=== PATIENT | female | born 2005 | race Caucasian/White ===

== ENCOUNTER 2025-06-01 06:24 | Outpatient (REF) | payer OTHER, SELFPAY ==
--- OUTSIDE RECORDS SUMMARY | 2025-05-26 23:35 | XMS_ITS | Encounter Summary ---
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 Name Role Phone Pcp, Unknown Primary Care Provider Unavailabl e Reason for Visit * Reason Comments Abdominal Pain Encounter Details Date Type Department Care Team ([facility] st Contact Info) Description 05/26/2025 11:35 PM EDT - 05/27/2025 5:40 AM EDT Emergency [facility] [address] [place] [address] Jen Ding MD [address] [place] [address] [email or web address] Discharge Disposition: Home or Self Care Social History Tobacco Use Types Packs/Day Years Used Date Smoking Tobacco: Never Assessed Education Answer Date Recorded Are you interested in more education? Not on dariel e 05/26/2025 Are you concerned about learning? Not on file 05/26/2025 No 05/26/2025 No 05/26/2025 Food Answer Date Recorded Within the past 6 months we worried whether our food would run out before we got money to buy more. Never True 05/27/2025 Within the past 6 months the food we bought just didn't last and we didn't have enough money to get more. Never True Residential Stability Answer Date Recor ded What is your housing situation today? I have jennie toño 05/27/2025 How many times have you moved in the past 12 thu ths? One time 05/27/2025 Paying for Meds Answer Date Recorded Do you have trouble paying for medicines? No 05/27/2025 Paying Utility Bills Answer Date Record ed Do you have trouble paying your heating or elect ricity bill? No 05/27/2025 Transportation Answer Date Recorded Has the lack of transportati on kept you from medical appointments or from getting medications? No 05/27/2025 Digital Access Answer Date Recorded No 05/27/2025 Yes 05/27/2025 Do you have reliable internet access at home? Ye s 05/27/2025 Do you have a device (e.g., phone, tablet, computer) with a working camera? Yes 05/27/2025 Intimate Partner Violence Answer Date R ecorded Are you denied basic needs s uch as food, clothing, or medical care? No 05/26/2025 In the past 12 months have y ou been in a relationship with a person who hurts, threatens, or tries to control you? No 05/26/2025 Are you denied basic needs s uch as food, clothing, or medical care? No 05/26/2025 In the past 12 months have y ou been in a relationship with a person who hurts, threatens, or tries to control you? No 05/26/2025 Comments No Sex and Gender Information Value Date Recorded Sex Assigned at Not on file Legal Sex Female 3:45 PM EDT Gender Identity Not on file Sexual Orientation Not on file documented as of this encounter Last Filed Vital Signs Vital Sign Reading Time Taken Comments Blood Pressure 126/63 05/27/2025 5:13 AM EDT Pulse 63 05/27/2025 5:13 AM EDT Temperature 36.9 C (98.4 F) 05/27/2025 5:13 AM EDT Respiratory Rate 16 05/27/2025 5:13 AM EDT Oxygen Saturation 99% 05/27/2025 5:13 AM EDT Inhaled Oxygen Concentration - - Weight 68 kg (150 lb) 05/26/2025 5:07 PM EDT Height 170.2 cm (5' 7 ) 05/26/2025 5:07 PM EDT Body Mass Index 23.49 05/26/2025 5:07 PM EDT documented in this encounter Functional Status * Calculated C-SSRS Risk Score (Lifetime/Recent) Answer Date of Assessment Author No Risk Indicated 05/26/2025 5:08 PM EDT Shay Dacosta RN * [place]in Suicide Severity Rating Scale (Screener/Recent Self-Report) Question Answer Date of Assessment Author 1. Krystal to be (Past 1 Month) No 05/26/2025 5:08 PM EDT Shay Dacosta RN 2. Non-Specific Active Suici sascha Thoughts (Past 1 Month) No 05/26/2025 5:08 PM EDT Braulio Dacosta RN 6. Suicidal Behavior (Lifetime) No 5:08 PM EDT Shay Dacosta RN documented as of this encounter Discharge Instructions * Discharge Instructions* Jen Ding MD - 05/27/2025 4:48 AM EDT You were seen in the emergency department for abdominal and pelvic pain. Your blood work is reassuring, the ultrasound and CAT scan did not show any concerning findings that would explain your symptoms. You were given a dose of Bentyl which is a medication that helps with GI type pain. I have sent a prescription to your pharmacy as well. You can take this up to 4 times a day as needed. Please follow-up with [facility] to have your symptoms rechecked and do not hesitate to return to the emergency department at any time for any new or worsening symptoms * Attachments The following attachments cannot be sent through Care Everywhere. * Abdominal Pain ([place]) documented in this encounter Medications at Time of Discharge dicyclomine (BENTYL) 10 MG capsule Take 1 capsule (10 mg total) by mouth 4 (four) times a day before meals and nightly. 20 capsule 05/27/2025 documented as of this encounter ED Notes * Yamilka Perdomo RN - 05/27/2025 5:17 AM EDT Pt has been cleared for discharge. She has verbalized understanding of discharge instructions and denied any further questions. VSS. NAD noted. She leaves department ambulatory and is noted to have astrong, steady gait. 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 * Shay Dacosta RN - 05/26/2025 5:00 PM EDT Pt arrived in ED with c/o abdominal pain for past several weeks. Pt reports abd pain has been coming and going in waves pain is described as localized stabbing and consistent 9/10 in LQ and pelvic area. Pt reports pain started this am with no relief in pain for past several hours. Pt denies CP,OSBALDO. Pt reports nausea denies vomiting. BM normal and no problems with urination. Pt is a/ox4 able to speak in full sentences resp even and unlabored, pt in visible pain.Upon palpation pain noted throughout lower quadrants. * Riana Hyatt PA-C - 05/26/2025 3:45 PM EDT Chief Complaint Chief Complaint Patient presents with Abdominal Pain History of Present Illness The patient, Camelia Hodge,is a 19 y.o. female who presents for evaluation of Abdominal Pain History of Present Illness This is a 19-year-old female presenting with abdominal pain. The patient has been experiencing unusual and painful lower abdominal pain for the past 3 weeks, which she initially thought was related to food. The pain started suddenly and was intermittent. She consulted a [facility] who diagnosed her with gastritis and prescribed medication, but the pain did not subside. The pain intensified, leading to an incident during a practice session where she was unable to sit upright. She then [facility], where blood tests were conducted but no abnormalities were found. An ultrasound was scheduled for the following week toinvestigate a potential ovarian cyst. Today, the pain began during her practice session and gradually increased in intensity, reaching a peak of 9 on a scale of 1 to 10. The pain was so severe that it caused difficulty in breathing, but it eventually subsided. Currently, she rates her pain at 2 or 3 and describes it as a squeezing sensation. She reports no nausea, vomiting, or fever. Her bowel movements are regular and without blood. She has noticed occasional haziness in her urine but reports no pain during urination or vaginal discharge. She is currently menstruating and is not sexually active. She has no history of abdominal surgeries and is generally healthy. She has noticed an increasein flatulence over the past week, which she finds unusual as it typically occurs a few days before her period. Unless otherwise specified, I have reviewed and agree with the triage and nursing notes. ROS A ten point review of systems was negative except what was noted in the HPI. Review of Systems Past Medical History No past medical history on file. Past Surgical History No past surgical history on file. Home Medications Prior to Admission medications Not on File Allergies No Known Allergies Social and Family History Social History Tobacco Use Smoking status: Not on file Smokeless tobacco: Not on file Substance Use Topics Alcohol use: Not on file Social History Substance and Sexual Activity Drug Use Not on file No family history on file. Physical Exam Vital Signs: ED Triage Vitals [05/26/25 1707] Encounter Vitals Group BP (!) 142/80 Systolic BP Percentile Diastolic BP Percentile Heart Rate (!) 47 Respiratory Rate 18 Temperature 36.8 ??C (98.2 ??F) Temp Source Tympanic SpO2 100 % Weight 150 lb Height 5' 7 Head Circumference Peak Flow Pain Score Pain Loc Pain Education Exclude from Growth Chart Physical Exam GENERAL APPEARANCE: AxOx3, appears generally well, not ill or toxic appearing, no acute distress. HEENT: Head is normocephalic and atraumatic, mucous membranes are moist without lesions NECK: Supple without lymphadenopathy. No stiffness or restricted ROM. CARDIOVASCULAR: Normal rate and regular rhythm, normal S1/S2, no murmurs, rubs or gallops PULMONARY: Lung sounds are clear to auscultation bilaterally, moving air well. No crackles or wheezes are heard. ABDOMEN: Soft, nondistended with good bowel sounds heard. Tenderness to palpation over abdominal lower abdomen. No rebound or guarding. No peritoneal signs. No CVA tenderness MUSCULOSKELETAL: normal ROM of all major extremities; no obvious deformities or signs of injury. NEUROLOGICAL: No focal deficits; CN 2-12 not formally tested but appear grossly intact. Observed toambulate with normal gait. SKIN: Warm and dry without any rash. Laboratory Testing Results for orders placed or performed during the hospital encounter of 05/26/25 Urine sediment Result Value Ref Range WBC 11-20 (*) NONE SEEN /hpf RBC TOO NUMEROUS TO COUNT (*) NONE SEEN /hpf URINE EPITHELIAL 5-10 (*) NONE SEEN MUCUS NONE SEEN NONE SEEN /hpf BACTERIA NONE SEEN NONE SEEN /hpf HCG, serum qualitative Specimen: Blood Result Value Ref Range HCG, QUALITATIVE Negative Negative IU/L Urinalysis w/reflex Urine Culture Specimen: Urine Result Value Ref Range COLOR Red (*) Yellow CLARITY TURBID GLUCOSE Negative Negative BILI 1+ (*) Negative KETONES Trace (*) Negative SPECIFIC GRAVITY 1.020 1.005 - 1.030 BLOOD 3+ (*) Negative PH 7.5 5.0 - 8.0 Protein-UA 1+ (*) Negative NITRITE Negative Negative Leukocyte esterase, ur Trace (*) Negative Lipase Specimen: Blood Result Value Ref Range LIPASE 43 16 - 63 U/L LFTs (hepatic panel) Specimen: Blood Result Value Ref Range ALKALINE PHOSPHATASE 68 39 - 117 U/L TOTAL BILIRUBIN <0.2 0.0 - 1.2 mg/dL DIRECT BILIRUBIN 0.1 0.0 - 0.2 mg/dL Bilirubin (Indirect) NOT CALCULATED 0 - 1.5 mg/dL AST 16 0 - 37 U/L ALT 9 0 - 40 U/L TOTAL PROTEIN 7.2 6.5 - 8.0 g/dL ALBUMIN 4.4 3.9 - 4.8 g/dL GLOBULIN 2.8 1 - 4.8 g/dL A/G Ratio 1.57 1.00 - 4.80 RATIO Basic metabolic panel Specimen: Blood Result Value Ref Range SODIUM 140 133 - 146 mmol/L CHLORIDE 106 96 - 108 mmol/L POTASSIUM 3.9 3.3 - 5.1 mmol/L CO2 23 21 - 35 mmol/L BUN 24 (H) 6 - 19 mg/dL CREATININE 0.70 0.5 - 1.5 mg/dL GLUCOSE 94 70 - 99 mg/dL CALCIUM 9.2 8.4 - 10.3 mg/dL EGFR >120 >59 mL/min/1.73m2 ANION GAP 15 10 - 20 mmol/L CBC and differential Specimen: Blood Result Value Ref Range WBC 7.03 4.00 - 11.00 K/uL RBC 3.83 (L) 4.00 - 5.20 M/uL HGB 11.7 (L) 12.0 - 16.0 g/dL HCT 34.8 (L) 36.0 - 46.0 % PLT 210 150 - 450 K/uL MCV 90.9 80.0 - 100.0 fL MCH 30.5 27.0 - 31.0 pg MCHC 33.6 32.0 - 36.0 g/dL RDW 12.5 11.5 - 14.5 % MPV 11.2 8.4 - 12.0 fL NRBC 0.00 0.00 /100 WBCs ABSOLUTE NRBC 0.00 0.00 K/uL DIFF METHOD Auto NEUTS 56.8 48.0 - 76.0 % LYMPHS 32.3 18.0 - 41.0 % MONOS 8.1 4.0 - 11.0 % EOS 2.0 0.0 - 5.0 % BASOS 0.4 0.0 - 1.5 % Granulocytes, immature (%) 0.4 0.0 - 0.9 % ABSOLUTE NEUTS 3.99 1.92 - 7.60 K/uL ABSOLUTE LYMPHS 2.27 0.72 - 4.10 K/uL ABSOLUTE MONOS 0.57 0.16 - 1.10 K/uL ABSOLUTE EOS 0.14 0.00 - 0.50 K/uL ABSOLUTE BASOS 0.03 0.00 - 0.15 K/uL Granulocytes, immature 0.03 0.00 - 0.09 K/uL Radiology Testing US Pelvis Final Result No acute abnormality. Abdomen/Pelvis (Results Pending) ED Medication from 05/26/2025 1545 to 05/27/2025 0354 Date/Time Order Dose Route Action Action by Comments 05/26/2025 1715 EDT acetaminophen (TYLENOL) tablet 975 mg 975 mg Oral Given Shay Dacosta RN-- 05/26/2025 1715 EDT ibuprofen (ADVIL,MOTRIN) tablet 600 mg 600 mg Oral Not Given Shay Dacosta RN -- 05/27/2025 0340 EDT diphenhydrAMINE (BENADRYL) capsule 50 mg 50 mg Oral Given Yamilka Perdomo RN -- [facility] 19-year-old female who presents to the emergency department with complaint of abdominal pain and nausea. HPI and physical exam as above. Upon presentation patient is hemodynamically stable, alert and oriented X3, afebrile, vital signs are all within normal limits, not ill or toxic appearing, no acute distress. Laboratory results are notable for mild anemia but otherwise unremarkable. Urinalysis likely contaminated due to patient currently menstruating. Patient denies any urinary symptoms. Pelvic ultrasound showed no acute abnormalities. Discussed results of evaluation with the patient and discussed further evaluation with CT imaging. Risks and benefits were discussed. Patient would like to proceed with CT imaging at this time. At the end of my shift patient was signed out to Dr. Ding disposition pending CT results. Clinical Impressions as of 05/27/25 0354 Abdominal pain, unspecified abdominal location Pelvic pain Clinical Impression Diagnosis Description Comment Final diagnoses Abdominal pain, unspecified abdominal location Abdominal pain, unspecified abdominal location -- Pelvic pain Pelvic pain -- Disposition: signed out Riana Hyatt PA-C 05/27/25353 Riana Hyatt PA-C 05/27/25354 * Jen Ding MD - 05/26/2025 3:45 PM EDT ED Course Clinical Impressions as of 05/27/25 0449 Abdominal pain, unspecified abdominal location Pelvic pain Assessment and Plan: Patient signed out pending CT scan which has resulted without any acute intra- abdominal pathology. Will trial Bentyl, advise close follow-up at [facility] and strict return precautions. Patient understands and agrees with plan. Stable for discharge. Attestation: I saw the patient as part of a shared visit with the advanced practice practitioner. I personally made or approved the management plan and take responsibility for the patient management. Jen Ding MD 05/27/25 045 documented in this encounter Plan of Treatment Not on file documented as of this encounter Procedures Procedure Name Priority Date/Time Associated Diagnosis Comments CT ABDOMEN/PELVIS WITH CONTRAST Routine 05/27/2025 4:02 AM EDT US PELVIS TRANSABDOMINAL PLUS TRANSVAGINAL Routine 05/27/2025 1:25 AM EDT HCG, SERUM QUALITATIVE STAT 5:37 PM EDT LFTS (HEPATIC PANEL) STAT 05/26/2025 5:37 PM EDT CBC AND DIFFERENTIAL STAT 05/26/2025 5:37 PM EDT LIPASE STAT 05/26/2025 5:37 PM EDT BASIC METABOLIC PANEL STAT 05/26/2025 5:37 PM EDT URINALYSIS W/REFLEX URINE CULTURE STAT 05/26/2025 5:12 PM EDT URINE CULTURE Routine 05/26/2025 5:12 PM EDT URINE SEDIMENT STAT 05/26/2025 5:12 PM EDT documented in this encounter Results * CT ABDOMEN/PELVIS WITH CONTRAST (05/27/2025 4:02 AM EDT) Anatomical Region Laterality Modality Abdomen, Pelvis Computed Tomogra phy 05/27/2025 4:38 AM EDT Impressions 05/27/2025 4:42 AM EDT No acute abnormality in the abdomen or pelvis. Narrative 05/27/2025 4:[address] ABDOMEN/PELVIS WITH CONTRAST Referring clinician's provided indication for this examination in Epic: * Abdominal pain, acute, nonlocalized TECHNIQUE: Multidetector-row CT of the abdomen and pelvis was performed after administration of intravenous contrast using tailored dose modulation techniques. Images were reconstructed in the axial, coronal, and sagittal planes. COMPARISON: None FINDINGS: Lower Chest: No consolidation or pleural effusions. Liver: No focal lesions. Biliary: Noninflamed gallbladder. No biliary ductal dilatation. Spleen: No splenomegaly or focal lesions. Pancreas: No masses or ductal dilatation. Adrenal Glands: No nodules. Kidneys/Ureters: No stones or hydronephrosis. Bowel: No bowel wall thickening or dilatation. Appendix not visualized, no secondary signs of appendicitis. Peritoneum/Retroperitoneum: Small volume free fluid in the pelvis, likely physiologic. No pneumoperitoneum. Lymph Nodes: No lymphadenopathy. Pelvic Organs/Bladder: No significant abnormality. Vessels: No abdominal aortic aneurysm. Bones/Soft Tissues: No significant abnormality. Procedure Note Lita Roche MD - 05/27/2025 CT ABDOMEN/PELVIS WITH CONTRAST Referring clinician's provided indication for this examination in [facility]: *Abdominal pain, acute, nonlocalized TECHNIQUE: Multidetector-row CT of the abdomen and pelvis was performedafter administration of intravenous contrast using tailored dosemodulation techniques. Images were reconstructed in the axial, coronal,and sagittal planes. COMPARISON: None FINDINGS: Lower Chest: No consolidation or pleural effusions. Liver: No focal lesions. Biliary: Noninflamed gallbladder. No biliary ductal dilatation. Spleen: No splenomegaly or focal lesions. Pancreas: No masses or ductal dilatation. Adrenal Glands: No nodules. Kidneys/Ureters: No stones or hydronephrosis. Bowel: No bowel wall thickening or dilatation. Appendix not visualized, nosecondary signs of appendicitis. Peritoneum/Retroperitoneum: Small volume free fluid in the pelvis, likelyphysiologic. No pneumoperitoneum. Lymph Nodes: No lymphadenopathy. Pelvic Organs/Bladder: No significant abnormality. Vessels: No abdominal aortic aneurysm. Bones/Soft Tissues: No significant abnormality. IMPRESSION: No acute abnormality in the abdomen or pelvis. us Riana Hyatt PA-C IMG CT ABD/PELVIS Final Res ult * US PELVIS TRANSABDOMINAL PLUS TRANSVAGINAL (05/27/2025 1:25 AM EDT) Anatomical Region Laterality Modality Pelvis, Uterus/Adnexa Ultrasound 05/27/2025 2:15 AM EDT Impressions 05/27/2025 2:17 AM EDT No acute abnormality. Narrative 05/27/2025 2:17 AM EDT US PELVIS TRANSABDOMINAL AND TRANSVAGINAL Referring clinician's provided indication for this examination in [facility]: Pain TECHNIQUE: Pelvic Ultrasound Transabdominal performed for global imaging of the pelvis. Pelvic Ultrasound Transvaginal performed for detailed imaging of the endometrium and/or adnexa. COMPARISON: None FINDINGS: Uterus: Size: 8.6 x 4.4 x 3.5 cm. Orientation: anteverted Myometrium: Normal. Endometrium: Normal. Thickness: 3 mm. Right adnexa: Ovary: Normal. Left adnexa: Ovary: Normal. Free fluid: No significant free fluid. Procedure Note Lita Roche MD - 05/27/2025 US PELVIS TRANSABDOMINAL AND TRANSVAGINAL Referring clinician's provided indication for this examination in Epic:Pain TECHNIQUE: Pelvic Ultrasound Transabdominal performed for global imagingof the pelvis. Pelvic Ultrasound Transvaginal performed for detailedimaging of the endometrium and/or adnexa. COMPARISON: None FINDINGS: Uterus: Size: 8.6 x 4.4 x 3.5 cm. Orientation: anteverted Myometrium: Normal. Endometrium: Normal. Thickness: 3 mm. Right adnexa: Ovary: Normal. Left adnexa: Ovary: Normal. Free fluid: No significant free fluid. IMPRESSION: No acute abnormality. Riana Hyatt PA-C IMG US PELVIS Final Resul t * HCG, serum qualitative (05/26/2025 5:37 PM EDT) HCG, QUALITATIVE Negative Negative IU/L [facility] Blood 05/26/2025 5:37 PM EDT 05/26/2025 5:44 PM EDT us Marcelle Adams PA-C LAB BLOOD ORDERABLES Final Result [facility] [address] [place] [address] * Lipase (05/26/2025 5:37 PM EDT) LIPASE 43 16 - 63 U/L [facility] Blood 05/26/2025 5:37 PM EDT 05/26/2025 5:44 PM EDT us Marcelle Adams PA-C LAB BLOOD ORDERABLES Final Result Performing Organization Address City/[facility]/ZIP Co de Phone Number [address] [address] * LFTs (hepatic panel) (05/26/2025 5:37 PM EDT) ALKALINE PHOSPHATASE 68 39 - 117 U/L [facility] TOTAL BILIRUBIN <0.2 0.0 - 1.2 mg/dL [facility] DIRECT BILIRUBIN 0.1 0.0 - 0.2 mg/dL [facility] Bilirubin (Indirect) NOT CALCULATED 0 - 1.5 mg/dL [facility] AST 16 0 - 37 U/L [facility] ALT 9 0 - 40 U/L [facility] TOTAL PROTEIN 7.2 6.5 - 8.0 g/dL [facility] ALBUMIN 4.4 3.9 - 4.8 g/dL [facility] GLOBULIN 2.8 1 - 4.8 g/dL [facility] A/G Ratio 1.57 1.00 - 4.80 RATIO [facility] Blood 05/26/2025 5:37 PM EDT 05/26/2025 5:44 PM EDT us Marcelle Adams PA-C LAB BLOOD ORDERABLES Final Result Performing Organization Address City/[facility]/ZIP Co de Phone Number [address] [address] * (ABNORMAL) Basic metabolic panel (05/26/2025 5:37 PM EDT) SODIUM 140 133 - 146 mmol/L [facility] CHLORIDE 106 96 - 108 mmol/L [facility] POTASSIUM 3.9 3.3 - 5.1 mmol/L [facility] CO2 23 21 - 35 mmol/L [facility] BUN 24(H) 6 - 19 mg/dL [facility] CREATININE 0.70 0.5 - 1.5 mg/dL [facility] GLUCOSE 94 70 - 99 mg/dL [facility] CALCIUM 9.2 8.4 - 10.3 mg/dL [facility] EGFR >120 >59 mL/min/1.7 3m2 [facility] Comment:Estimated glomerular filtration rate calculated using the CKD-EPI refit equation. ANION GAP 15 10 - 20 mmol/L [facility] Blood 05/26/2025 5:37 PM EDT 05/26/2025 5:44 PM EDT us Marcelle Adams PA-C LAB BLOOD ORDERABLES Final Result [facility] [address] [place] [address] * (ABNORMAL) CBC and differential (05/26/2025 5:37 PM EDT) WBC 7.03 4.00 - 11.00 K/uL [facility] RBC 3.83(L) 4.00 - 5.20 M/uL [facility] HGB 11.7(L) 12.0 - 16.0 g/dL [facility] HCT 34.8(L) 36.0 - 46.0 % [facility] PLT 210 150 - 450 K/uL [facility] MCV 90.9 80.0 - 100.0 fL [facility] MCH 30.5 27.0 - 31.0 pg [facility] MCHC 33.6 32.0 - 36.0 g/dL [facility] RDW 12.5 11.5 - 14.5 % [facility] MPV 11.2 8.4 - 12.0 fL [facility] NRBC 0.00 0.00 /100 WBCs [facility] ABSOLUTE NRBC 0.00 0.00 K/uL [facility] DIFF METHOD Auto [facility] NEUTS 56.8 48.0 - 76.0 % [facility] LYMPHS 32.3 18.0 - 41.0 % [facility] MONOS 8.1 4.0 - 11.0 % [facility] EOS 2.0 0.0 - 5.0 % [facility] BASOS 0.4 0.0 - 1.5 % [facility] Granulocytes, immature (%) 0.4 0.0 - 0.9 % [facility] ABSOLUTE NEUTS 3.99 1.92 - 7.60 K/uL [facility] ABSOLUTE LYMPHS 2.27 0.72 - 4.10 K/uL [facility] ABSOLUTE MONOS 0.57 0.16 - 1.10 K/uL [facility] ABSOLUTE EOS 0.14 0.00 - 0.50 K/uL [facility] ABSOLUTE BASOS 0.03 0.00 - 0.15 K/uL [facility] Granulocytes, immature 0.03 0.00 - 0.09 K/uL [facility] Blood 05/26/2025 5:37 PM EDT 05/26/2025 5:44 PM EDT us Marcelle Adams PA-C LAB BLOOD ORDERABLES Final Result Performing Organization Address City/[facility]/ZIP Co de Phone Number [address] [address] * (ABNORMAL) Urine Culture (05/26/2025 5:12 PM EDT) Special Requests None Reflexed from [id number] 05/26/2025 7:26 PM EDT [facility] Urine Culture >100,000 colony forming units per mL MIXED [place]AG[place] (3 OR MORE COLONY TYPES) Culture indicates contamination . Please resubmit if necessary.(A) 05/28/2025 12:43 PM EDT [facility] Urine 05/26/2025 5:12 PM EDT 05/26/2025 6:30 PM EDT us Marcelle Adams PA-C MICROBIOLOGY - GENERA L ORDERABLES Final Result [address] [address] * (ABNORMAL) Urine sediment (05/26/2025 5:12 PM EDT) WBC 11-20(A) NONE SEEN /hpf [facility] RBC TOO NUMEROUS TO COUNT(A) NONE SEEN /hpf [facility] URINE EPITHELIAL 5-10(A) NONE SEEN [facility] MUCUS NONE SEEN NONE SEEN /hpf [facility] BACTERIA NONE SEEN NONE SEEN /hpf [facility] 05/26/2025 5:12 PM EDT 05/26/2025 6:30 PM EDT Marcelle Adams PA-C URINE ORDERABLES Kizzy l Result Performing Organization Address [facility]/ZIP Co de Phone Number [address] [address] [address] * (ABNORMAL) Urinalysis w/reflex Urine Culture (05/26/2025 5:12 PM EDT) COLOR Red(A) Yellow [facility] CLARITY TURBID [facility] GLUCOSE Negative Negative [facility] BILI 1+(A) Negative [facility] KETONES Trace(A) Negative [facility] SPECIFIC GRAVITY 1.020 1.005 - 1.030 [facility] BLOOD 3+(A) Negative [facility] PH 7.5 5.0 - 8.0 [facility] Protein-UA 1+(A) Negative [facility] NITRITE Negative Negative [facility] Leukocyte esterase, ur Trace(A) Negative [facility] Urine (Urine) 05/26/2025 5:1 2 PM EDT 05/26/2025 6:30 PM EDT Marcelle Adams PA-C URINE ORDERABLES Kizzy l Result Performing Organization Address [facility] Co de Phone Number [address] [address] documented in this encounter Visit Diagnoses Diagnosis Abdominal pain, unspecified abdominal location- Primary Pelvic pain documented in this encounter Administered Medications Inactive Administered Medications - up to 3 most recent administrations Medication Order MAR Action Action Date Dose Rate Site acetaminophen (TYLENOL) tablet 975 mg 975 mg, Oral, Once, On Thu05/26/25 at 1715, For 1 dose Given 05/26/2025 5:15 PM EDT 975 mg dicyclomine (BENTYL) capsule 10 mg 10 mg, Oral, Once, On 05/27/25 at 0500, For 1 dose Given 05/27/2025 5:06 AM EDT 10 mg diphenhydrAMINE (BENADRYL) capsule 50 mg 50 mg, Oral, Once, On 05/27/25 at 0300, For 1 dose Given 05/27/2025 3:40 AM EDT 50 mg iohexoL (OMNIPAQUE-350) 350 mg iodine/mL solution 100 mL 100 mL, Intravenous, Once as needed, pre procedure/treatment, Starting on 05/27/25 at 0346, For 1 dose, Procedural Contrast/Med Active Now, Each mL contains 755 mg of iohexol equivalent to 350 mg of organic iodine. Given 05/27/2025 3:56 AM EDT 100 mL documented in this encounter Active and Recently Administered Medications Times are shown in EDT. Scheduled Medication Order 05/25/2025 05/26/2025 05/27/2025 acetaminophen (TYLENOL) tablet 975 mg (COMPLETED) 975 mg, Oral, Once, On 05/26/25 at 1715, For 1 dose 1715 (Given - Provider: Shay Dacosta RN) dicyclomine (BENTYL) capsule 10 mg (COMPLETED) 10 mg, Oral, Once, On 05/27/25 at 0500, For 1 dose 0506 (Given - Provid er: Yamilka Perdomo RN) diphenhydrAMINE (BENADRYL) capsule 50 mg (COMPLETED) 50 mg, Oral, Once, On 05/27/25 at 0300, For 1 dose 0340 (Given - Provid er: Yamilka Perdomo RN) ibuprofen (ADVIL,MOTRIN) tablet 600 mg 600 mg, Oral, Once, On 05/26/25 at 1715, For 1 dose 1715 (Not Given - Provider: Shay Dacosta RN - Reason: Contraindicated) PRN Medication Order 05/25/2025 05/26/2025 05/27/2025 iohexoL (OMNIPAQUE-350) 350 mg iodine/mL solution 100 mL (COMPLETED) 100 mL, Intravenous, Once as needed, pre procedure/treatment, Starting on 10/11/25 at 0346, For 1 dose, Procedural Contrast/Med Active Now, Each mL contains 755 mg of iohexol equivalent to 350 mg of organic iodine. 0356 (Given - Provid er: Sarah Kraft) documented in this encounter Care Teams Door Furring Installer Relationship Specialty Start Date End Date Pcp, Unknown PCP - General 05/26/25 documented as of this encounter Additional Source Comments The information contained in this document represents components of the legal health record. It is not the complete legal health record.[facility]
--- OUTSIDE RECORDS SUMMARY | 2025-06-01 06:28 | XMS_ITS | Clinical Summary ---
Author Organization [facility] Address [address] [place] [phone] Phone Care Team Providers Care Line Puller Name Role Phone Pcp, Unknown Primary Care Provider Unavailabl e Allergies No known active allergies Medications dicyclomine (BENTYL) 10 MG capsule Take 1 capsule (10 mg total) by mouth 4 (four) times a day before meals and nightly. 20 capsule 05/27/2025 Active Encounters Date Type Department Care Team Description 05/27/2025 Procedure Pass [facility], Ct Scan - [facility] [address] [place] [address] 05/26/2025 11:35 PM EDT - 05/27/2025 5:40 AM EDT Emergency [facility] [address] [place] [address] Jen Ding MD Discharge Disposition: Home or Self Care from Last 3 Months Social History Tobacco Use Types Packs/Day Years [...] your housing situation today? I have jennie sing 05/27/2025 How many times have you moved in the past 12 thu? One time 05/27/2025 Paying for Meds Answer [...] on file Sexual Orientation Not on file Last Filed Vital Signs Vital Sign Reading [...] Mass Index 23.49 05/26/2025 5:07 PM EDT Plan of Treatment Health Maintenance Due Date Last Done Comments MMR VACCINES (1 of 1 - Stand sandeep series) 2006 DEVELOPMENTAL/BEHAVIORAL SCR EENING (PHQ, PSC, or SWYC) 2008 COMBINED DTaP,Tdap,Td (1 - Tdap) 2012 DEPRESSION SCREENING 2017 SMOKING Hx and SMOKELESS TOB ACCO SCREENING 2018 VARICELLA VACCINES (1 of 2 - 13+ 2-dose series) 2018 HPV VACCINES (1 - 3-dose series) 2020 CHLAMYDIA SCREENING 2021 MENINGOCOCCAL VACCINES (B) ( 1 of 2 - Standard) 2021 ADOLESCENT UNIVERSAL LIPID SCREENING 2022 HEPATITIS C SCREENING 2023 HIV ONE-TIME SCREENING (18-6 5 YEARS) 2023 HEPATITIS B VACCINES (1 of 3 - 19+ 3-dose series) 2024 INFLUENZA VACCINE (#1) 2025 COVID-19 VACCINE (1 - 2024-2 6 season) 2025 BMI ASSESSMENT 05/26/2026 05/26/2025 HEPATITIS A VACCINES Aged Out No long er eligible based on patient's age to complete this topic HIB VACCINES Aged Out No longer eligi ble based on patient's age to complete this topic MENINGOCOCCAL VACCINES (ACWY) Aged Out No longer eligible based on patient's age to complete this topic PNEUMOCOCCAL VACCINES (0-49 years) Aged Out No longer eligible based on patient's age to complete this topic Medical Devices Not on file Procedures Procedure Name Priority Date/Time Associated Diagnosis Comments CT ABDOMEN/PELVIS WITH CONTRAST Routine 05/27/2025 4:02 AM EDT US PELVIS TRANSABDOMINAL PLUS TRANSVAGINAL Routine 05/27/2025 1:25 AM EDT HCG, SERUM QUALITATIVE STAT 5:37 PM EDT LIPASE STAT 05/26/2025 5:37 PM EDT LFTS (HEPATIC PANEL) STAT 05/26/2025 5:37 PM EDT BASIC METABOLIC PANEL STAT 05/26/2025 5:37 PM EDT CBC AND DIFFERENTIAL STAT 05/26/2025 5:37 PM EDT URINE SEDIMENT STAT 05/26/2025 5:12 PM EDT URINALYSIS W/REFLEX URINE CULTURE STAT 05/26/2025 5:12 PM EDT URINE CULTURE Routine 05/26/2025 5:12 PM EDT from Last 3 Months Results * CT ABDOMEN/PELVIS WITH CONTRAST (05/27/2025 4:02 AM EDT) Anatomical Region Laterality Modality Abdomen, Pelvis Computed Tomogra phy 05/27/2025 4:38 AM EDT Impressions 05/27/2025 4:42 AM EDT No acute abnormality in the abdomen or pelvis. Narrative 05/27/2025 4:[address] ABDOMEN/PELVIS WITH CONTRAST Referring clinician's provided indication for this examination in [facility]: * Abdominal pain, acute, nonlocalized TECHNIQUE: Multidetector-row [...] clinician's provided indication for this examination in [facility]: *Abdominal pain, acute, nonlocalized TECHNIQUE: Multidetector-row CT [...] clinician's provided indication for this examination in [facility]: Pain TECHNIQUE: Pelvic Ultrasound Transabdominal performed for [...] PM EDT) HCG, QUALITATIVE Negative Negative IU/L [facility] Blood 05/26/2025 5:37 PM EDT 05/26/2025 5:44 PM EDT Marcelle Adams PA-C LAB BLOOD ORDERABLES Final Result [address] [address] * LFTs (hepatic panel) (05/26/2025 5:37 PM EDT) ALKALINE PHOSPHATASE 68 39 - 117 U/L [facility] TOTAL BILIRUBIN <0.2 0.0 - 1.2 mg/dL [facility] DIRECT BILIRUBIN 0.1 0.0 - 0.2 mg/dL [facility] Bilirubin (Indirect) NOT CALCULATED 0 - 1.5 mg/dL [facility] AST 16 0 - 37 U/L [facility] ALT 9 0 - 40 U/L [facility] TOTAL PROTEIN 7.2 6.5 - 8.0 g/dL [facility] ALBUMIN 4.4 3.9 - 4.8 g/dL [facility] GLOBULIN 2.8 1 - 4.8 g/dL [facility] A/G Ratio 1.57 1.00 - 4.80 RATIO [facility] Blood 05/26/2025 5:37 PM EDT 05/26/2025 5:44 PM EDT us Marcelle Adams PA-C LAB BLOOD ORDERABLES Final Result [facility] [address] [place] [address] * (ABNORMAL) CBC and differential (05/26/2025 5:37 PM EDT) WBC 7.03 4.00 - 11.00 K/uL [facility] RBC 3.83(L) 4.00 - 5.20 M/uL [facility] HGB 11.7(L) 12.0 - 16.0 g/dL [facility] HCT 34.8(L) 36.0 - 46.0 % [facility] PLT 210 150 - 450 K/uL [facility] MCV 90.9 80.0 - 100.0 fL [facility] MCH 30.5 27.0 - 31.0 pg [facility] MCHC 33.6 32.0 - 36.0 g/dL [facility] RDW 12.5 11.5 - 14.5 % [facility] MPV 11.2 8.4 - 12.0 fL [facility] NRBC 0.00 0.00 /100 WBCs [facility] ABSOLUTE NRBC 0.00 0.00 K/uL [facility] DIFF METHOD Auto [facility] NEUTS 56.8 48.0 - 76.0 % [facility] LYMPHS 32.3 18.0 - 41.0 % [facility] MONOS 8.1 4.0 - 11.0 % [facility] EOS 2.0 0.0 - 5.0 % [facility] BASOS 0.4 0.0 - 1.5 % [facility] Granulocytes, immature (%) 0.4 0.0 - 0.9 % [facility] ABSOLUTE NEUTS 3.99 1.92 - 7.60 K/uL [facility] ABSOLUTE LYMPHS 2.27 0.72 - 4.10 K/uL [facility] ABSOLUTE MONOS 0.57 0.16 - 1.10 K/uL [facility] ABSOLUTE EOS 0.14 0.00 - 0.50 K/uL [facility] ABSOLUTE BASOS 0.03 0.00 - 0.15 K/uL [facility] Granulocytes, immature 0.03 0.00 - 0.09 K/uL [facility] Blood 05/26/2025 5:37 PM EDT 05/26/2025 5:44 PM EDT Marcelle Adams PA-C LAB BLOOD ORDERABLES Final Result [address] [address] * Lipase (05/26/2025 5:37 PM EDT) Pathologist [facility] LIPASE 43 16 - 63 U/L [facility] Blood 05/26/2025 5:37 PM EDT 05/26/2025 5:44 PM EDT Marcelle Adams PA-C LAB BLOOD ORDERABLES Final Result Performing Organization Address City/[facility]/ZIP Co de Phone Number [address] [address] * (ABNORMAL) Basic metabolic panel (05/26/2025 5:37 PM EDT) SODIUM 140 133 - 146 mmol/L [facility] CHLORIDE 106 96 - 108 mmol/L [facility] POTASSIUM 3.9 3.3 - 5.1 mmol/L [facility] CO2 23 21 - 35 mmol/L [facility] BUN 24(H) 6 - 19 mg/dL [facility] CREATININE 0.70 0.5 - 1.5 mg/dL [facility] GLUCOSE 94 70 - 99 mg/dL [facility] CALCIUM 9.2 8.4 - 10.3 mg/dL [facility] EGFR >120 >59 mL/min/1.7 3m2 [facility] Comment:Estimated glomerular filtration rate calculated using the CKD-EPI refit equation. ANION GAP 15 10 - 20 mmol/L [facility] Blood 05/26/2025 5:37 PM EDT 05/26/2025 5:44 PM EDT Marcelle Adams PA-C LAB BLOOD ORDERABLES Final Result Performing Organization Address [facility] Co de Phone Number [address] [address] * (ABNORMAL) Urinalysis w/reflex Urine Culture (05/26/2025 5:12 PM EDT) COLOR Red(A) Yellow [facility] CLARITY TURBID [facility] GLUCOSE Negative Negative [facility] BILI 1+(A) Negative [facility] KETONES Trace(A) Negative [facility] SPECIFIC GRAVITY 1.020 1.005 - 1.030 [facility] BLOOD 3+(A) Negative [facility] PH 7.5 5.0 - 8.0 [facility] Protein-UA 1+(A) Negative [facility] NITRITE Negative Negative [facility] Leukocyte esterase, ur Trace(A) Negative [facility] Urine (Urine) 05/26/2025 5:1 2 PM EDT 05/26/2025 6:30 PM EDT Marcelle Adams PA-C URINE ORDERABLES Kizzy l Result Performing Organization Address [facility]/ZIP Co de Phone Number [address] [address] * (ABNORMAL) Urine Culture (05/26/2025 5:12 PM EDT) Special Requests None Reflexed from [id number] 05/26/2025 7:26 PM EDT [facility] Urine Culture >100,000 colony forming units per mL MIXED NAGA (3 OR MORE COLONY TYPES) Culture indicates contamination . Please resubmit if necessary.(A) 05/28/2025 12:43 PM EDT [facility] Urine 05/26/2025 5:12 PM EDT 05/26/2025 6:30 PM EDT us Marcelle Adams PA-C MICROBIOLOGY - GENERA L ORDERABLES Final Result Performing Organization Address City/[facility]/ZIP Co de Phone Number [address] [address] * (ABNORMAL) Urine sediment (05/26/2025 5:12 PM EDT) WBC 11-20(A) NONE SEEN /hpf [facility] RBC TOO NUMEROUS TO COUNT(A) NONE SEEN /hpf [facility] URINE EPITHELIAL 5-10(A) NONE SEEN [facility] MUCUS NONE SEEN NONE SEEN /hpf [facility] BACTERIA NONE SEEN NONE SEEN /hpf [facility] 05/26/2025 5:12 PM EDT 05/26/2025 6:30 PM EDT us Marcelle Adams PA-C URINE ORDERABLES Kizzy l Result Performing Organization Address [facility] Co de Phone Number [address] [address] from Last 3 Months Insurance [facility] [employer] Care Teams Line Puller Relationship Specialty Start Date End Date Pcp, Unknown PCP - General 05/26/25 Additional Source Comments The information contained in this document represents components of the legal health record. It is not the complete legal health record.[facility]
--- OUTSIDE RECORDS SUMMARY | 2025-06-01 06:28 | XMS_ITS | Encounter Summary ---
Author Organization [facility] Address [address] [place] [address] Phone Care Team Providers Care Bolting Machine Operator Name Role Phone Pcp, Unknown Primary Care Provider Unavailabl e Encounter Details Date Type Department Care Team (Late st Contact Info) Description 05/27/2025 Procedure Pass [facility], Ct Scan - [facility] [address] [place] [address] Social History Tobacco Use Types Packs/Day Years [...] on file documented as of this encounter Plan of Treatment Not on file documented as of this encounter Visit Diagnoses Not on filedocumented in this encounter Care Teams Bolting Machine Operator Relationship Specialty Start Date End Date Pcp, Unknown PCP - General 05/26/25 documented as of this encounter Additional Source Comments The information contained in this document represents components of the legal health record. It is not the complete legal health record.[facility]
== END 2025-06-01 06:25 | disposition home or self-care (01) ==
LOC: HO.UMASIMG 06:24
PROVIDERS: Visit Provider Student in an Organized Health Care Education/Training Program
DX: Z13.89 Encounter for screening for other disorder (principal)